=== PATIENT | female | born 1970 | race Caucasian/White ===

== ENCOUNTER → 2016-07-25 | Outpatient (CLI) | payer BC ==
[~2016-07-25] MED LIST: CIPRO 500MG TA500 MG PO; CLINDAMYCIN HC300 MG PO; FLEXERIL10 MG PO; GABAPENTIN300 MG PO; HYDROCODONE1 TABLET PO; IBU-8800 MG PO; IBUPROFEN800 MG PO; KEFLEX 500MG.500 MG PO; LORTAB 5/500 501 TAB PO; MEDROL 4MG. DOSE4 MG PO; NAPROSYN 500MG500 MG PO; NAPROSYN500 M1 PO; NOMEDS; OMEPRAZOLE40 MG PO; ROBAXIN-750750 MG PO; SERTRALINE 100100 MG PO; TESSALON PERLE100 MG PO; TYLENOL ES500 M1 PO; VIBRAMYCIN 100100 MG PO; [UNRECOGNIZED DRUG - OTHER] PO
[2016-07-27 08:36] LABS: RA Latex Turbid. <10.0 IU/mL (0.0-13.9)
[2016-07-28 16:36] LABS: Antinuclear Antibodies, IFA Negative (.)
== END ==
LOC: LAB 14:27
PROVIDERS: Orthopaedic Surgery
DX: M65.4 Radial styloid tenosynovitis [de Quervain] (principal)

== ENCOUNTER → 2016-08-29 | Outpatient (CLI) | payer BC | LOC: RT 12:03 | DX: Z01.810 Encounter for preprocedural cardiovascular examination (principal) ==